=== PATIENT | female | born 1990 | race Caucasian/White ===

== ENCOUNTER 2021-11-27 07:48 | Emergency (ER) | payer OTHER ==
[~2021-11-27] VITALS: Ht 160 cm; Wt 93.4 kg
[~2021-11-27 07:48] MED LIST: SODIUM CHLORIDE FLUSH 10 ML SYR IV PRN
[2021-11-27] MEDS ORDERED: ONDANSETRON HCL INJ 2MG/ML 2ML 2 MG/ML VIAL IV STA (07:59)
[2021-11-27] MEDS ORDERED: ASPIRIN 325 MG TAB PO ONE (08:00)
[2021-11-27 08:17] LABS: BASOPHILS % 0.5 % (0.0-1.0); EOSINOPHILS % 0.7 % (0.0-6.0); HEMATOCRIT 42.5 % (34.2-44.1); HEMOGLOBIN 13.7 g/dL (12.0-16.0); LYMPHOCYTES # (AUTO) 0.9 (1.0-3.2); LYMPHOCYTES % 14.8 % (18.0-39.1); MEAN CORPUSCULAR HEMOGLOBIN 26.6 pg (28-32); MEAN CORPUSCULAR HGB CONC 32.2 g/dL (31-35); MEAN CORPUSCULAR VOLUME 82.5 fL (81-99); MONOCYTES # (AUTO) 0.5 (0.2-0.8); NEUTROPHILS # (AUTO) 4.4 (2.1-6.9); NEUTROPHILS % 75.8 % (38.7-80.0); PLATELET COUNT 327 x10e3/uL (140-360); RED BLOOD COUNT 5.15 x10e6/uL (3.6-5.1); RED CELL DISTRIBUTION WIDTH 13.8 % (11.7-14.4)
[2021-11-27] MEDS ORDERED: SODIUM CHLORIDE 0.9% 1000ML 1,000 ML IV SCH (08:30)
[2021-11-27 08:32] LABS: AMPHETAMINES SCREEN,URINE NEGATIVE (NEGATIVE); BENZODIAZEPINES SCREEN,URINE NEGATIVE (NEGATIVE); CLARITY,URINE SL CLOUDY (CLEAR); COLOR,URINE YELLOW (YELLOW); KETONES,URINE TRACE (NEGATIVE); NITRITE,URINE NEGATIVE (NEGATIVE); PHENCYCLIDINE SCREEN,URINE NEGATIVE (NEGATIVE); PROTEIN,URINE DIPSTICK 1+ (NEGATIVE); URINE UROBILINOGEN 0.2 mg/dL (0.2 - 1)
[2021-11-27 08:34] LABS: INR 0.87; PROTHROMBIN TIME 12.7 seconds (11.9-14.5)
[2021-11-27 08:42] LABS: ALANINE AMINOTRANSFERASE 33 IU/L (0-55); ALBUMIN 4.2 g/dL (3.5-5.0); ALBUMIN/GLOBULIN RATIO 1.1 (0.8-2.0); ALKALINE PHOSPHATASE 67 IU/L (40-150); ANION GAP 16.9 mmol/L (8-16); BLOOD UREA NITROGEN 9 mg/dL (7-26); BUN/CREATININE RATIO 12 (6-25); CALCIUM 9.5 mg/dL (8.4-10.2); CARBON DIOXIDE 21 mmol/L (22-29); CHLORIDE 105 mmol/L (98-107); CREATININE, SERUM 0.73 mg/dL (0.57-1.11); GLUCOSE 119 mg/dL (74-118); LIPASE 17 U/L (8-78); POTASSIUM 3.9 mmol/L (3.5-5.1); SODIUM 139 mmol/L (136-145)
[2021-11-27 08:48] LABS: LEUKOCYTE ESTERASE ,URINE SMALL (NEGATIVE)
[2021-11-27 08:51] LABS: AMORPHOUS SEDIMENT,URINE MANY (FEW); BACTERIA,URINE FEW /HPF; EPITHELIAL CELLS,URINE FEW /LPF; RBC,URINE 0-5 /HPF (0-5)
[2021-11-27] MEDS ORDERED: IOPAMIDOL 370 MG/ML 100 ML INFUS..BTL INJ ONE (09:23)
[2021-11-27] MEDS ORDERED: IBUPROFEN800 MG PO (10:14)
[2021-11-27] MEDS ORDERED: ONDANSETRON ODT4 MG PO (10:14)
[2021-11-27] MEDS ORDERED: CEFDINIR300 MG PO (10:14)
[2021-11-27 10:28] VITALS: BP 125/73
== END 2021-11-27 10:31 | disposition home or self-care (01) ==
LOC: ER 07:51
DX: R07.89 Other chest pain (principal); R11.0 Nausea; N39.0 Urinary tract infection, site not specified; R73.9 Hyperglycemia, unspecified; F41.9 Anxiety disorder, unspecified; M54.9 Dorsalgia, unspecified; G89.29 Other chronic pain; R94.31 Abnormal electrocardiogram [ECG] [EKG]; F17.210 Nicotine dependence, cigarettes, uncomplicated
CPT/HCPCS: 36415; 71045; 71260; 80053; 80307; 81001; 81025; 83690; 84484; 85025; 85610; 93005; 99284; J2405; J7030; Q9967

== ENCOUNTER 2022-05-04 04:34 | Emergency (ER) | payer OTHER ==
[~2022-05-04] VITALS: Ht 160 cm; Wt 91.6 kg
[~2022-05-04 04:34] MED LIST changes: +CEFDINIR300 MG PO; +IBUPROFEN800 MG PO; +ONDANSETRON ODT4 MG PO; -SODIUM CHLORIDE FLUSH 10 ML SYR IV PRN
[2022-05-04] MEDS ORDERED: FAMOTIDINE 20 MG/2 ML VIAL IV STA (05:24)
[2022-05-04] MEDS ORDERED: ONDANSETRON HCL INJ 2MG/ML 2ML 2 MG/ML VIAL IV STA ×2 (05:24→06:05)
[2022-05-04] MEDS ORDERED: SODIUM CHLORIDE 0.9% 1000ML 1,000 ML IV SCH (05:30)
[2022-05-04] MEDS ORDERED: SODIUM CHLORIDE 0.9% 1000ML 1,000 ML ONE (05:32)
[2022-05-04] MEDS ORDERED: ONDANSETRON HCL INJ 2MG/ML 2ML 2 MG/ML VIAL ONE ×2 (05:32→06:11)
[2022-05-04] MEDS ORDERED: FAMOTIDINE 20 MG/2 ML VIAL IV ONE (05:33)
[2022-05-04] MEDS ORDERED: DONNATAL/LIDOCAINE/MAALOX 30 ML SUSP PO ONE (05:45)
[2022-05-04] MEDS ORDERED: IOPAMIDOL 370 MG/ML 100 ML INFUS..BTL INJ ONE (06:00)
[2022-05-04] MEDS ORDERED: LIDOCAINE VISC 2% SOLN 15 ML UDC ONE (06:10)
[2022-05-04] MEDS ORDERED: BELLADONNA ALK/PHENOBARBITAL 5 ML UDC ONE (06:11)
[2022-05-04] MEDS ORDERED: MAGNESIUM/ALUMINUM/SIMETHICONE 30 ML UDC ONE (06:11)
[2022-05-04] MEDS ORDERED: ONDANSETRON ODT4 MG PO (06:53)
[2022-05-04] MEDS ORDERED: FAMOTIDINE40 MG PO (06:54)
[2022-05-04] MEDS ORDERED: LEVSIN-SL0.125 MG SL (06:55)
[2022-05-04 06:57] VITALS: BP 152/89
[2022-05-04] MEDS ORDERED: KLONOPIN0.5 MG PO (06:58)
== END 2022-05-04 07:11 | disposition home or self-care (01) ==
LOC: FSED 05:11
DX: R11.2 Nausea with vomiting, unspecified (principal); K52.9 Noninfective gastroenteritis and colitis, unspecified; N83.201 Unspecified ovarian cyst, right side; R10.10 Upper abdominal pain, unspecified; I10 Essential (primary) hypertension; F41.9 Anxiety disorder, unspecified; F41.0 Panic disorder [episodic paroxysmal anxiety]
CPT/HCPCS: 71046; 74177; 80048; 80076; 81003; 81025; 85025; 87400; 96374; 96376; 99284; J2405; J7030; Q9967

== ENCOUNTER 2022-08-15 22:16 | Emergency (ER) | payer OTHER ==
[~2022-08-15] VITALS: Ht 157.5 cm; Wt 68.0 kg
[~2022-08-15 22:16] MED LIST changes: +FAMOTIDINE40 MG PO; +KLONOPIN0.5 MG PO; +LEVSIN-SL0.125 MG SL
[2022-08-15 22:40] VITALS: O2SAT 100
[2022-08-15] MEDS ORDERED: DIPHENHYDRAMINE HCL 25 MG CAP PO ONE (23:00)
[2022-08-15] MEDS ORDERED: KETOROLAC TROMETHAMINE 30 MG/ML VIAL IV STA (23:13)
[2022-08-15] MEDS ORDERED: KETOROLAC TROMETHAMINE 30 MG/ML VIAL ONE (23:22)
== END 2022-08-16 00:42 | disposition home or self-care (01) ==
LOC: FSED 22:41
DX: M79.622 Pain in left upper arm (principal); R53.81 Other malaise; R53.83 Other fatigue; F17.210 Nicotine dependence, cigarettes, uncomplicated; F41.9 Anxiety disorder, unspecified; F32.A Depression, unspecified; Z79.899 Other long term (current) drug therapy
CPT/HCPCS: 80053; 82553; 84484; 85025; 93005; 99283; J1885